=== PATIENT | female | born 1950 | race African-American/Black ===

== ENCOUNTER 2017-05-27 06:35 | Day surgery (SDC) | payer MEDICARE, MEDICAID ==
[2017-05-24 09:42] VITALS: BMI 31.2
[~2017-05-27 06:35] MED LIST: FLU VACC TS2017-18 (>65YR) 0.5 ML SYRINGE IM ONE
[2017-05-27 07:49] VITALS: TEMP 97
[2017-05-27 07:50] VITALS: BP 123/77
--- NOTE | 2017-05-27 10:27 | CT ---
EXAM: CERVICAL MYELOGRAM: HISTORY: Patient with neck pain, pacemaker. Unable to have MRI. RADIATION DOSIMETRY: DAP 466 mGy*\S\m2. The following is a compilation of findings on the patient's myelogram and post-myelographic CT. Informed consent was obtained. The right L1-2 interlaminar space was localized using fluoroscopy. The overlying skin was prepped and draped in the usual sterile manner. A 1% Lidocaine solution was used to anesthetize the overlying soft tissues. A 22-gauge spinal needle was placed into the subara chnoid space. A total of 10 mL of Isovue-M 300 was injected into the subarachnoid space. Using pos itioning, this was placed into the cervical spine. Post myelographic CT was obtained. Disk space height loss with multilevel disk space height loss and anterior and posterior osteophytes is seen at C3-4, C4-5, C5-6, C6-7. There is no significant evidence of central spinal stenosis. N o significant evidence of neural foraminal narrowing is seen. Multilevel midcervical changes of spondylosis. No significant central stenosis or neural foraminal narrowing is seen. No evidence of thecal sac or cord compression is seen. POS: [facility]
[2017-05-27] MEDS ORDERED: Iopamidol-M 300 61% 15 ML VIAL ONE (16:40)
== END 2017-05-27 10:20 | disposition home or self-care (01) ==
LOC: RAD 06:35
PROVIDERS: ATTEND Neurological Surgery
PROC: B01B1ZZ Fluoroscopy of Spinal Cord using Low Osmolar Contrast (ICD-10-PCS; principal; 2017-05-27)
DX: M54.12 Radiculopathy, cervical region (principal); M19.90 Unspecified osteoarthritis, unspecified site; I10 Essential (primary) hypertension; K21.9 Gastro-esophageal reflux disease without esophagitis; F60.1 Schizoid personality disorder; E03.9 Hypothyroidism, unspecified; J45.909 Unspecified asthma, uncomplicated; H40.9 Unspecified glaucoma; Z88.0 Allergy status to penicillin; Z88.8 Allergy status to other drugs, medicaments and biological substances; Z79.899 Other long term (current) drug therapy; Z95.0 Presence of cardiac pacemaker; Z87.891 Personal history of nicotine dependence
CPT/HCPCS: 62302; 72126

== ENCOUNTER 2017-05-27 14:33 | Observation (INO) | payer MEDICARE, MEDICAID ==
[2017-05-27 15:25] LABS: #Eosinphils 0.3 thou/uL (0.0-0.7); #Monocytes 0.5 thou/uL (0.11-0.59); #Neutrophils 2.5 thou/uL (1.40-6.50); %Basophils 0.6 % (0.0-1.0); %Eosinophils 5.5 % (0.0-10.0); %Lymphocytes 38.4 % (21.0-51.0); %Monocytes 8.8 % (0.0-10.0); Hematocrit 44.5 % (36.0-47.0); Mean Platelet Volume 7.2 fL (7.4-10.4); Red Blood Cell (RBC) Count 5.46 mill/uL (4.20-5.40); White Blood Cell (WBC) Count 5.2 thou/uL (4.8-10.8)
--- NOTE | 2017-05-27 15:44 | CT ---
HEAD CT WITHOUT CONTRAST: Date: 05/27/17 COMPARISON: 12/16/16. HISTORY: Recent onset of vision loss in the left eye, chronic right vision loss. TECHNIQUE: Serial axial CT imaging is obtained at 5 mm intervals from the vertex through the skull base without contrast. FINDINGS: There is extensive high density material throughout the subarachnoid space bilaterally from vertex through skull base. There is high density material throughout the ventricular system. This is consi stent with recent myelogram and injection of intrathecal contrast media. The presence of this pre-ex isting contrast media makes it impossible to exclude the possibility of underlying extra-axial hemor rhage. No midline shift or mass effect. Imaged paranasal sinuses and mastoid air cells are well aera joanna. No displaced calvarial fracture. IMPRESSION: Limited head CT secondary to recent administration of intrathecal contrast. No midline shift or mass effect. Follow-up imaging is advised as clinically indicated. POS: [facility]
[2017-05-27 15:48] LABS: ALT (SGPT) 16 U/L (8-55); AST (SGOT) 23 U/L (5-34); Alkaline Phosphatase 84 U/L (40-150); Anion Gap 13 mmol/L (10-20); BUN (Urea Nitrogen) 22 mg/dL (9.8-20.1); Bilirubin, Total 0.4 mg/dL (0.2-1.2); Calc. Creatinine Clearance 0 mL/min (70-130); Calcium 9.7 mg/dL (7.8-10.44); Carbon Dioxide 27 mmol/L (23-31); Chloride 103 mmol/L (98-107); Estimated GFR-MDRD 60; Globulin 4.5 g/dL (2.4-3.5); Protein, Total 8.5 g/dL (6.0-8.3)
[2017-05-27 15:52] LABS: Troponin I Less than 0.010 ng/mL (< 0.028)
[2017-05-27] MEDS ORDERED: PROVENTIL INHALER 6.7 G (200 INHALATIONS) INH PRN (16:58)
[2017-05-27] MEDS ORDERED: HYDROcodone/Acetaminophen 5/325 mg Tablet PO PRN (16:58)
[2017-05-27] MEDS ORDERED: Acetaminophen 325 MG TAB PO PRN (16:58)
[2017-05-27] MEDS ORDERED: Zolpidem Tartrate 5 MG TAB PO PRN (16:58)
[2017-05-27] MEDS ORDERED: Clopidogrel Bisulfate 300 MG TAB PO SCH (17:00)
[2017-05-27] MEDS ORDERED: methylPREDNISolone Sod Succ/PF 125 MG/2 ML VIAL ONE (17:04)
[2017-05-27] MEDS ORDERED: Water For Inject, Bacteriostat 30 ML ONE (17:04)
[2017-05-27] MEDS ORDERED: Labetalol HCl 100 MG/20 ML VIAL SLOW IVP PRN (17:07)
--- NOTE | 2017-05-27 18:44 | HP ---
PRIMARY CARE PROVIDER: Bella Jeffries. Referred to the [facility] Service for visual abnorm ality. HISTORY OF PRESENT ILLNESS: The patient had 2 procedures done today, a cervical spine myelogram and a cervical spine CT. Upon arriving home, she had an episode of blurred vision, then red vision and now elevation. She called the coat tailor after it went red. She is blind in the right eye, only has vis ion in the left eye. Has no double vision. Has chronic blurry vision. Studies were done because o f the pain in the left side of her head, down into her neck that has been present for 4 months, francoise garcia. PAST MEDICAL HISTORY: Chronic medical problems, hypothyroidism, asthma, rheumatoid arthritis, hyper tension and elevated cholesterol. CURRENT MEDICATIONS: Levothyroxine 75 mcg a day, metoprolol 100 mg a day, losartan 100 mg a day, ga bapentin 300 mg 3 times a day and atorvastatin 20 mg a day. ALLERGIES: ASPIRIN, PENICILLIN and TRAMADOL. PAST SURGICAL HISTORY: Right ankle surgery, bilateral right arm surgery to her forearm, hysterectom y and two hernias. FAMILY HISTORY: Father of heart disease. Mother of colon cancer. SOCIAL HISTORY: The patient is . Does not smoke or drink alcohol. Does not use illegal zach gs. CODE STATUS: Full. Did not name surrogate decision maker on this visit. REVIEW OF SYSTEMS: General: She has had some dizziness with the present illness, but she did not r eally feel like she is going to faint. No whirling around. No fever, sweats or chills. Eyes: No blurry, no flashing lights or other disturbance other than that described in the present illness. E NT: No ear pain or drainage. No nasal bleeding. No trouble swallowing. Cardiac: No chest pain, orthopnea or paroxysmal nocturnal dyspnea. Respiratory: No cough, wheezing or asthma. Gastrointes tinal: Nausea with the present illness. No vomiting, no abdominal pain, no diarrhea or constipatio n. Genitourinary: No hematuria or dysuria. Musculoskeletal: No pain or swelling in the joints, m uscles of her legs or arms. Neurologic: No history of strokes, seizures or focal weakness. Psychi atric: No anxiety or depression. Skin: No bruising, bleeding or rash. Heme/Lymph: No tender or swollen lymph nodes in axilla, inguinal or cervical area. PHYSICAL EXAMINATION: VITAL SIGNS: Blood pressure ranged to 167/102, pulse 82, respirations 18 and temperature 97.9. GENERAL: She is alert, oriented, cooperative, pleasant lady. HEENT: Eyes: Right pupil is large irregular cloudy nonreactive. Left round, reactive. Extraocula r movements grossly intact. Sclerae white. Tympanic membranes are clear. Nose is clear. Oral muc ous membranes are wet. Dental hygiene is good. CHEST: Clear to auscultation and percussion. NECK: No jugular venous distention, adenopathy, or thyromegaly. HEART: Regular rate and rhythm. First and second heart sounds are clear. There are no murmurs or gallops. ABDOMEN: Soft, bowel sounds are normal. There is no hepatosplenomegaly, no mass, no rebound. EXTREMITIES: Reveal no cyanosis, clubbing or edema. PULSES: Carotid, radial, femoral and dorsalis pedis pulses intact. SKIN: Warm and dry without bruises or rash. HEME/LYMPH: No tender or swollen lymph nodes in axilla, inguinal or cervical area. Deep tendon ref lexes are symmetric. Toes are downgoing. Moves all extremities. NEUROLOGICAL: Cranial nerves II-XII were intact except for the pupillary responses of the right whe n tested for colored vision. When I pointed blue, she said it looked bacon; when I pointed green, sh e said it looked bacon; when I pointed green, she said it was yellow and when I pointed red, she said orange. IMAGING DATA: CT scan of her brain reviewed by me reveals contrast to making any interpretation dif ficult. LABORATORY DATA: White count 5.2, hemoglobin 14.6 and platelet count 231,000. Comp metabolic profi le normal except for a BUN of 22. ADMITTING DIAGNOSES: 1. Visual change post-intrathecal contrast studies. 2. Blind in right eye, chronic. 3. Hypertension. 4. Dyslipidemia. 5. Asthma. PLAN: We will get sed rate. We will give a dose of Solu-Medrol IV. We will place her in the hospi cipriano and do neuro checks. The patient is allergic to ASPIRIN. I have ordered 300 mg of Plavix. We will do carotid ultrasounds, reevaluate as needed.
[2017-05-27 18:52] VITALS: BMI 28.2
[2017-05-27] MEDS: Ondansetron HCl/PF 4 MG/2 ML Vial IVP PRN (19:29)
--- NOTE | 2017-05-27 19:34 | ULT ---
BILATERAL CAROTID DUPLEX ULTRASOUND WITH SPECTRAL ANALYSIS AND COLOR FLOW EVALUATION: Date: 05-27-17 History: Visual disturbance. FINDINGS: Grayscale, color flow, doppler evaluation, spectral analysis of the bilateral carotid arteries is pe rformed with 2D imaging. There is stable mild intimal thickening within the bilateral common carotid arteries similar to the prior exam. There is less than 50% maximal stenosis in the bilateral internal carotid arteries according to the peak systolic velocities and the ICA/CCA ratios. Peak systolic velocity in the right ICA is 59.5 cm/ sec with an ICA/CCA ratio of 0.74. Peak systolic velocity in the left ICA is 58.2 cm/sec with an ICA /CCA ratio of 0.96. Antegrade flow is demonstrated in the vertebral arteries bilaterally. Peak systolic velocity measurements have not significantly changed compared to a prior study on 05-18. IMPRESSION: No hemodynamically significant stenosis in the bilateral internal carotid arteries. POS: [facility]
[2017-05-27] MEDS: Metoprolol Tartrate 100 MG TAB PO SCH (20:54)
[2017-05-28] MEDS: Levothyroxine Sodium 75 MCG TAB PO SCH (04:38)
[2017-05-28 05:04] LABS: #Lymphocytes 0.8 thou/uL (1.20-3.40); #Monocytes 0.1 thou/uL (0.11-0.59); #Neutrophils 4.3 thou/uL (1.40-6.50); %Basophils 0.4 % (0.0-1.0); %Eosinophils 0.1 % (0.0-10.0); %Monocytes 1.9 % (0.0-10.0); Hematocrit 43.6 % (36.0-47.0); Mean Platelet Volume 7.4 fL (7.4-10.4); Red Blood Cell (RBC) Count 5.37 mill/uL (4.20-5.40); White Blood Cell (WBC) Count 5.3 thou/uL (4.8-10.8)
[2017-05-28 05:33] LABS: Anion Gap 12 mmol/L (10-20); BUN (Urea Nitrogen) 18 mg/dL (9.8-20.1); Calc. Creatinine Clearance 63 mL/min (70-130); Calcium 9.2 mg/dL (7.8-10.44); Carbon Dioxide 23 mmol/L (23-31); Chloride 106 mmol/L (98-107); Cholesterol 218 mg/dl (< 200 Desired); Estimated GFR-MDRD 68; LDL Cholesterol, Calculated 153 mg/dL
[2017-05-28] MEDS ORDERED: FLU VACC TS2017-18 (>65YR) 0.5 ML SYRINGE IM ONE (09:00)
--- NOTE | 2017-05-28 09:48 | DIS ---
TRANSFER OF CARE NOTE PRIMARY CARE PROVIDER: Bella Jeffries NP DISCHARGE DISPOSITION: Home. DATE OF ADMISSION: 05/27/2017 DATE OF DISCHARGE: 05/28/2017 FINAL DIAGNOSES: 1. Visual color change, resolved. 2. Hypertension. 3. Hypothyroidism. 4. Asthma. DISCHARGE MEDICATIONS: Ventolin HFA p.r.n., metoprolol 100 mg a day, losartan 100 mg a day, Lipitor 20 mg a day, levothyroxine 75 mcg a daily, Lyrica 75 mg p.o. b.i.d., Medrol Dosepak started today. ALLERGIES: ASPIRIN, PENICILLIN, and TRAMADOL. CODE STATUS: Full. PENDING AT THE TIME OF DISCHARGE: Nothing. HOSPITAL COURSE: The patient had a myelogram yesterday. She developed strange visual sensations, f irst bluish vision, then yellowish vision and reddish vision. CT scan was compromised by contrast i n her head. Today she is fine. Her vision is normal. Laboratory done revealed essentially normal comp metabolic profile, sed rate was only 50, which is within normal range for age, CBC was unremark able. She was initially given IV steroids. Today vital signs are stable. Neurological exam is sta ble. She is being discharged. She is on her home medicines. I have included a Medrol Dosepak empi rically. She has been asked to see Bella Jeffries in 7 days for followup. Carotid ultrasounds done were reinaldo zhang
[2017-05-28] MEDS: Atorvastatin Calcium 20 MG TAB PO SCH (09:56)
[2017-05-28] MEDS: Metoprolol Tartrate 100 MG TAB PO SCH ×2 (09:56→20:38)
[2017-05-28] MEDS: Losartan Potassium 25 MG TAB PO SCH (09:57)
[2017-05-28] MEDS: Ondansetron HCl/PF 4 MG/2 ML Vial IVP PRN ×2 (10:49→18:35)
--- NOTE | 2017-05-28 14:48 | PDOC.PN ---
- Subjective Encounter Start Date: 05/28/17 Encounter Start Time: 14:46 Subjective: was ready for DC this am, visual syptoms resolved. now states she has had -: N/V since procedure yesterday. PT states she needs further PT - Objective Resuscitation Status: Resuscitation Status FULL:Full Resuscitation MAR Reviewed: Yes Vital Signs & Weight: Vital Signs (12 hours) Temp Pulse Pulse Pulse Pulse Resp BP 05/28/17 12:00 97.8 F 61 16 05/28/17 09:13 62 88 83 142/70 H 05/28/17 08:40 98.5 F 63 16 05/28/17 08:02 74 66 147/82 H 05/28/17 08:00 98.5 F 63 16 05/28/17 04:10 97.8 F 67 18 BP BP BP Pulse Ox 05/28/17 12:00 162/85 H 98 05/28/17 09:13 138/69 138/88 05/28/17 08:40 05/28/17 08:02 181/89 H 05/28/17 08:00 182/103 H 95 05/28/17 04:10 146/80 H 95 Weight Weight 159 lb 8 oz I&O: 05/27/17 05/28/17 05/29/17 06:59 06:59 06:59 Intake Total 820 Balance 820 Result Diagrams: 05/28/17 04:45 05/28/17 04:45 Phys Exam - Physical Examination Constitutional: NAD Neck: no JVD Respiratory: clear to auscultation bilateral Cardiovascular: RRR, no significant murmur Gastrointestinal: soft, non-tender, positive bowel sounds Musculoskeletal: no edema Neurological: non-focal is unstaable walking per Pt Dx/Plan (1) Nausea & vomiting Code(s): R11.2 - NAUSEA WITH VOMITING, UNSPECIFIED Status: Acute Qualifiers: Vomiting Intractability: unspecified (2) Visual color changes Code(s): H53.50 - UNSPECIFIED COLOR VISION DEFICIENCIES Status: Resolved (3) Asthma with bronchitis Code(s): J45.909 - UNSPECIFIED ASTHMA, UNCOMPLICATED Status: Chronic Qualifiers: Asthma complication type: uncomplicated (4) Hypertension Code(s): I10 - ESSENTIAL (PRIMARY) HYPERTENSION Status: Chronic - Plan CONt PT. rehab consult -: iv fluids, zofran prn * .
[2017-05-28] MEDS: Dextrose 5 %-0.45 % NaCl 1,000 ML IV SCH (15:24)
[2017-05-29] MEDS: Dextrose 5 %-0.45 % NaCl 1,000 ML IV SCH (02:50)
[2017-05-29] MEDS: Levothyroxine Sodium 75 MCG TAB PO SCH (05:57)
[2017-05-29] MEDS: Metoprolol Tartrate 100 MG TAB PO SCH ×2 (08:22→20:34)
[2017-05-29] MEDS: Losartan Potassium 25 MG TAB PO SCH (08:22)
[2017-05-29] MEDS: Atorvastatin Calcium 20 MG TAB PO SCH (08:22)
--- NOTE | 2017-05-29 16:06 | PDOC.PN ---
- Subjective Encounter Start Date: 05/29/17 Encounter Start Time: 16:04 Subjective: mo N/V. vesial abn rdsolved - Objective Resuscitation Status: Resuscitation Status FULL:Full Resuscitation MAR Reviewed: Yes Vital Signs & Weight: Vital Signs (12 hours) Temp Pulse Pulse Pulse Resp BP BP 05/29/17 11:30 98.3 F 78 16 05/29/17 08:36 74 62 115/62 113/69 05/29/17 08:00 97.8 F 66 18 05/29/17 07:20 97.8 F 66 18 BP Pulse Ox 05/29/17 11:30 129/76 95 05/29/17 08:36 05/29/17 08:00 05/29/17 07:20 129/78 95 Weight Weight 164 lb 4.8 oz I&O: 05/28/17 05/29/17 05/30/17 06:59 06:59 06:59 Intake Total 820 2800 600 Balance 820 2800 600 Result Diagrams: 05/28/17 04:45 05/28/17 04:45 Phys Exam - Physical Examination Constitutional: NAD Neck: no nodes Respiratory: clear to auscultation bilateral Cardiovascular: RRR, no significant murmur Gastrointestinal: soft, positive bowel sounds Musculoskeletal: edema present Dx/Plan (1) Nausea & vomiting Code(s): R11.2 - NAUSEA WITH VOMITING, UNSPECIFIED Status: Acute Qualifiers: Vomiting Intractability: unspecified (2) Visual color changes Code(s): H53.50 - UNSPECIFIED COLOR VISION DEFICIENCIES Status: Resolved (3) Asthma with bronchitis Code(s): J45.909 - UNSPECIFIED ASTHMA, UNCOMPLICATED Status: Chronic Qualifiers: Asthma complication type: uncomplicated (4) Hypertension Code(s): I10 - ESSENTIAL (PRIMARY) HYPERTENSION Status: Chronic - Plan stable, cont PT/OT, home meds * .
[2017-05-29] MEDS ORDERED: Atorvastatin Calcium 10 MG TAB PO SCH (21:00)
[2017-05-30] MEDS: Levothyroxine Sodium 75 MCG TAB PO SCH (05:34)
[2017-05-30] MEDS ORDERED: Clopidogrel Bisulfate 75 MG TAB PO SCH (09:00)
[2017-05-30] MEDS: Losartan Potassium 25 MG TAB PO SCH (09:09)
[2017-05-30] MEDS: Metoprolol Tartrate 100 MG TAB PO SCH (09:10)
[2017-05-30 11:06] VITALS: BP 136/67; TEMP 98.6
--- NOTE | 2017-05-30 12:21 | DIS ---
TRANSFER OF CARE NOTE DATE OF ADMISSION: 05/27/2017 DATE OF DISCHARGE: 05/30/2017 DISCHARGE DISPOSITION: Discharged to inpatient rehabilitation. PRIMARY CARE PROVIDER: Bella Jeffries FINAL DIAGNOSES: 1. Unspecified color vision deficiencies post-cervical myelogram. 2. Ataxia. 3. Hypertension. 4. Hypothyroidism. 5. Nausea, and vomiting, resolved. 6. History of asthma. DISCHARGE MEDICATIONS: Plavix 75 mg a day, metoprolol 100 mg a day, losartan 100 mg a day, Lipitor 20 mg a day, levothyroxine 75 mcg a day, gabapentin 300 mg 3 times a day, Lyrica 75 mg twice a day, Plavix 75 mg a day, Ventolin 2 puffs q.4 h. p.r.n. ALLERGIES: Allergic to ASPIRIN, PENICILLINS and TRAMADOL. PENDING AT TIME OF DISCHARGE: Nothing. CODE STATUS: FULL. HOSPITAL COURSE: The patient had a cervical myelogram the day before presenting in the emergency ro om with color vision disturbance. She first described her vision as being blue, then yellow, then r ed. Subsequently resolved. Her neurological exam was grossly symmetric. CT scan done in the emerg ency room was compromised with contrast. Her symptoms had resolved within hours of admission. 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 Her laboratory; CBC was normal. Com p metabolic profile was essentially normal. Cholesterol was 218, LDL 153, HDL 54. The patient was not on aspirin due to aspirin allergy, she was started on Plavix. She was seen by physical therapy. While she did not have any specific neurological findings they found her to be unsteady. She does use a cane at home and had requested a walker when she goes home. Physical Therapy recommended agapito t she be considered for inpatient rehab for deconditioning and strengthening. This has finally been approved and she is being transferred over there to [facility] for continued physical t herapy and occupational therapy CONSULTATIONS: No consultations were obtained. PROCEDURES: No procedures were done. FOLLOWUP: She will follow up with Bella Jeffries once discharged from the rehab unit.
== END 2017-05-30 14:06 ==
LOC: ERS 14:33 → 2SE 16:40
PROVIDERS: ADMIT Internal Medicine; ATTEND Internal Medicine
DX: H53.50 Unspecified color vision deficiencies (principal); R27.0 Ataxia, unspecified; I10 Essential (primary) hypertension; E03.9 Hypothyroidism, unspecified; R11.2 Nausea with vomiting, unspecified; J45.909 Unspecified asthma, uncomplicated; E78.00 Pure hypercholesterolemia, unspecified; M06.9 Rheumatoid arthritis, unspecified; Z88.0 Allergy status to penicillin; Z88.5 Allergy status to narcotic agent; Z79.899 Other long term (current) drug therapy; Z88.8 Allergy status to other drugs, medicaments and biological substances; Z98.890 Other specified postprocedural states; Z82.49 Family history of ischemic heart disease and other diseases of the circulatory system; Z80.0 Family history of malignant neoplasm of digestive organs; Z87.891 Personal history of nicotine dependence
CPT/HCPCS: 62302; 70450; 72126; 80048; 80053; 80061; 82553; 84484; 85025 ×2; 85652; 90732; 93005; 93880; 96361 ×2; 96374; 96375; 96376; 97110 ×3; 97116 ×3; 97139 ×2; 97530; 99285; G0008; G0009; G0378 ×2; G8978; G8979; G8987; G8988; Q2036; 36415; 90471; 90682; G8996-GN-CH; G8997-GN-CH; J2405; J2930

== ENCOUNTER 2017-10-24 22:12 | Emergency (ER) | payer MEDICARE, MEDICAID | END 2017-10-24 22:55 | disposition left against medical advice (07) | LOC: ERS 22:12 | DX: Z53.21 Procedure and treatment not carried out due to patient leaving prior to being seen by health care provider (principal) ==

== ENCOUNTER 2018-02-27 13:09 | Outpatient (CLI) | payer MEDICARE, MEDICAID | END 2018-02-27 13:10 | disposition home or self-care (01) | LOC: BICMAMMO 13:09 | PROVIDERS: ATTEND Family Medicine | DX: Z12.31 Encounter for screening mammogram for malignant neoplasm of breast (principal); Z13.820 Encounter for screening for osteoporosis; M85.89 Other specified disorders of bone density and structure, multiple sites; Z80.3 Family history of malignant neoplasm of breast | CPT/HCPCS: 77063; 77067; 77080 ==

== ENCOUNTER 2019-01-27 11:11 | Emergency (ER) | payer MEDICARE ==
--- NOTE | 2019-01-31 15:08 | EKG ---
Test Reason : Blood Pressure : / mmHG Vent. Rate : 065 BPM Atrial Rate : 065 BPM P-R Int : 288 ms QRS Dur : 086 ms QT Int : 434 ms P-R-T Axes : 037 009 -73 degrees QTc Int : 451 ms Atrial-paced rhythm with prolonged AV conduction with Premature atrial complexes T wave abnormality, consider lateral ischemia Abnormal ECG Confirmed by JE ALBERT ([id number]), supervising film or videotape editor TANNER MELÉNDEZ ([id number]) on 01/31/2019 3:07:43 PM Referred By: Confirmed By:JE ALBERT
== END 2019-01-27 12:35 | disposition home or self-care (01) ==
LOC: ERS 11:11
DX: T65.91XA Toxic effect of unspecified substance, accidental (unintentional), initial encounter (principal); J45.909 Unspecified asthma, uncomplicated; E03.9 Hypothyroidism, unspecified; I10 Essential (primary) hypertension; F31.9 Bipolar disorder, unspecified; Z87.891 Personal history of nicotine dependence; Z79.51 Long term (current) use of inhaled steroids; Z79.899 Other long term (current) drug therapy
CPT/HCPCS: 93005

== ENCOUNTER 2020-01-21 21:37 | Emergency (ER) | payer MEDICARE, MEDICAID ==
[2020-01-21] MEDS ORDERED: Ketorolac Tromethamine 30 MG/ML VIAL ONE (22:03)
--- NOTE | 2020-01-22 07:34 | CT ---
CT LUMBAR SPINE WITHOUT CONTRAST: Date: 01/21/2020 HISTORY: Trauma, fall. COMPARISON: CT from 2014. FINDINGS: The aortic contour is nonaneurysmal. Mild diverticular disease sigmoid colon. No hydronephrosis. No acute fracture or malalignment of the lumbar spine. Moderate left and mild right SI joint degenera tive changes. The transverse processes are intact. Small disc bulges L3-4, L4-5, and L5-S1 cause mild bilateral sourav ral foraminal narrowing. No significant spinal canal narrowing is appreciated, although evaluation is limited with CT. IMPRESSION: Relatively normal examination for age. No acute fracture. POS: HOME
--- NOTE | 2020-01-22 07:38 | CT ---
CT PELVIS WITHOUT CONTRAST: Date: 01/21/2020 HISTORY: Fall, pain. COMPARISON: None. FINDINGS: Intrapelvic soft tissues are unremarkable. Moderate degenerative change of the left and mild degenera tive change of the right SI joint. Sacrum intact. Ilium intact. Obturator rings intact. Femoral heads and necks intact. Coccyx intact. Mild enthesopathic change of both hamstring tendons. Superficial soft tissues are unremarkable. IMPRESSION: No acute pelvic fracture. POS: HOME
== END 2020-01-21 22:45 | disposition home or self-care (01) ==
LOC: ERS 21:37
DX: M54.42 Lumbago with sciatica, left side (principal); I10 Essential (primary) hypertension; J45.909 Unspecified asthma, uncomplicated; E03.9 Hypothyroidism, unspecified; F31.9 Bipolar disorder, unspecified; M06.9 Rheumatoid arthritis, unspecified; Z87.891 Personal history of nicotine dependence; Z79.899 Other long term (current) drug therapy; Z79.51 Long term (current) use of inhaled steroids
CPT/HCPCS: 72131; 72192; 96374; J1885

== ENCOUNTER 2021-02-03 11:18 | Inpatient (IN) | payer MEDICARE, OTHER ==
[~2021-02-03 11:18] MED LIST changes: -FLU VACC TS2017-18 (>65YR) 0.5 ML SYRINGE IM ONE; +Iopamidol-370 76% 500 ML 1 ML ONE
[2021-02-03] MEDS ORDERED: Clopidogrel Bisulfate 75 MG TAB ONE (11:49)
[2021-02-03 11:52] LABS: #Eosinphils 0.2 thou/uL (0.0-0.7); #Lymphocytes 1.6 thou/uL (1.20-3.40); #Monocytes 0.4 thou/uL (0.11-0.59); #Neutrophils 2.2 thou/uL (1.40-6.50); %Basophils 0.4 % (0.0-1.0); %Eosinophils 3.6 % (0.0-10.0); %Lymphocytes 35.7 % (21.0-51.0); %Monocytes 9.8 % (0.0-10.0); %Neutrophils 50.5 % (42.0-75.0); Hemoglobin 12.8 g/dL (12.0-16.0); Mean Corpuscular HGB CONC 30.4 g/dL (32.0-36.0); Mean Corpuscular Hemoglobin 24.4 pg (27.0-31.0); Mean Corpuscular Volume 80.3 fL (78.0-98.0); Mean Platelet Volume 8.4 fL (7.4-10.4); Platelet Count 210 thou/uL (130-400); RBC Distribution Width 15.2 % (11.5-14.5); Red Blood Cell (RBC) Count 5.23 mill/uL (4.20-5.40); White Blood Cell (WBC) Count 4.4 thou/uL (4.8-10.8)
[2021-02-03 12:04] LABS: INR-International Normal Ratio 0.9; PTT 26.4 sec (22.9-36.1); Prothrombin Time 12.5 sec (12.0-14.7)
[2021-02-03 12:15] LABS: ALT (SGPT) 25 U/L (8-55); AST (SGOT) 25 U/L (5-34); Albumin 3.8 g/dL (3.4-4.8); Alkaline Phosphatase 81 U/L (40-110); Anion Gap 14 mmol/L (10-20); BUN (Urea Nitrogen) 20 mg/dL (9.8-20.1); Bilirubin, Total 0.3 mg/dL (0.2-1.2); Calc. Creatinine Clearance 0 mL/min (70-130); Calcium 9.2 mg/dL (7.8-10.44); Carbon Dioxide 25 mmol/L (23-31); Chloride 107 mmol/L (98-107); Globulin 3.7 g/dL (2.4-3.5); Glucose 90 mg/dL (83-110); Lipase 25 U/L (8-78); Magnesium 2.2 mg/dL (1.6-2.6); Potassium 4.2 mmol/L (3.5-5.1); Protein, Total 7.5 g/dL (5.8-8.1); Sodium 142 mmol/L (136-145)
[2021-02-03] MEDS ORDERED: Albuterol Sulfate 2.5 mg/3 ml Neb NEB PRN (13:27)
[2021-02-03 15:04] VITALS: BMI 31.3
[2021-02-03] MEDS: Atorvastatin Calcium 40 MG TAB PO SCH (20:40)
[2021-02-03] MEDS ORDERED: hydrALAZINE 20 MG/ML VIAL SLOW IVP PRN (20:55)
[2021-02-03] MEDS ORDERED: Labetalol HCl 100 MG/20 ML VIAL SLOW IVP PRN (20:55)
[2021-02-04] MEDS: Melatonin 3 MG TAB PO PRN ×2 (00:05→21:19)
[2021-02-04 05:43] LABS: #Eosinphils 0.2 thou/uL (0.0-0.7); #Lymphocytes 1.6 thou/uL (1.20-3.40); #Monocytes 0.3 thou/uL (0.11-0.59); #Neutrophils 1.6 thou/uL (1.40-6.50); %Eosinophils 4.6 % (0.0-10.0); %Lymphocytes 42.4 % (21.0-51.0); %Monocytes 8.5 % (0.0-10.0); %Neutrophils 44.5 % (42.0-75.0); Hemoglobin 12.1 g/dL (12.0-16.0); Mean Corpuscular HGB CONC 31.6 g/dL (32.0-36.0); Mean Corpuscular Hemoglobin 25.4 pg (27.0-31.0); Mean Corpuscular Volume 80.4 fL (78.0-98.0); Mean Platelet Volume 8.4 fL (7.4-10.4); Platelet Count 205 thou/uL (130-400); RBC Distribution Width 15.2 % (11.5-14.5); Red Blood Cell (RBC) Count 4.76 mill/uL (4.20-5.40); White Blood Cell (WBC) Count 3.7 thou/uL (4.8-10.8)
[2021-02-04 05:46] LABS: Hemoglobin A1c 5.9 % (4.0-6.0)
[2021-02-04] MEDS: Levothyroxine Sodium 100 MCG TAB PO SCH (05:59)
[2021-02-04 06:05] LABS: ALT (SGPT) 20 U/L (8-55); AST (SGOT) 22 U/L (5-34); Albumin 3.4 g/dL (3.4-4.8); Alkaline Phosphatase 72 U/L (40-110); Anion Gap 10 mmol/L (10-20); BUN (Urea Nitrogen) 14 mg/dL (9.8-20.1); Bilirubin, Total 0.3 mg/dL (0.2-1.2); Calc. Creatinine Clearance 73 mL/min (70-130); Calcium 8.7 mg/dL (7.8-10.44); Carbon Dioxide 28 mmol/L (23-31); Cardiac Risk 3.1 (Less than 4.5); Chloride 106 mmol/L (98-107); Cholesterol 161 mg/dl (< 200 Desired); Globulin 3.3 g/dL (2.4-3.5); Glucose 96 mg/dL (83-110); HDL Cholesterol 52 mg/dL (>60 Neg Risk); LDL Cholesterol, Calculated 98 mg/dL; Potassium 3.8 mmol/L (3.5-5.1); Protein, Total 6.7 g/dL (5.8-8.1); Sodium 140 mmol/L (136-145); Triglycerides 54 mg/dL (Less than 150)
[2021-02-04] MEDS: Clopidogrel Bisulfate 75 MG TAB PO SCH (09:05)
[2021-02-04] MEDS: Enoxaparin Sodium 30 MG/0.3 ML SYRINGE SC SCH (09:05)
[2021-02-04] MEDS: Atorvastatin Calcium 40 MG TAB PO SCH (21:19)
[2021-02-05] MEDS: hydrOXYzine 25 MG TAB PO PRN ×2 (01:32→20:47)
[2021-02-05 05:27] LABS: #Basophils 0.1 thou/uL (0.0-0.2); #Eosinphils 0.2 thou/uL (0.0-0.7); #Lymphocytes 1.4 thou/uL (1.20-3.40); #Monocytes 0.3 thou/uL (0.11-0.59); #Neutrophils 1.9 thou/uL (1.40-6.50); %Basophils 1.4 % (0.0-1.0); %Eosinophils 5.5 % (0.0-10.0); %Lymphocytes 36.7 % (21.0-51.0); %Monocytes 8.8 % (0.0-10.0); %Neutrophils 47.6 % (42.0-75.0); Hemoglobin 13.3 g/dL (12.0-16.0); Mean Corpuscular HGB CONC 33.6 g/dL (32.0-36.0); Mean Corpuscular Hemoglobin 26.9 pg (27.0-31.0); Mean Platelet Volume 8.1 fL (7.4-10.4); Platelet Count 216 thou/uL (130-400); RBC Distribution Width 14.9 % (11.5-14.5); Red Blood Cell (RBC) Count 4.93 mill/uL (4.20-5.40); White Blood Cell (WBC) Count 3.9 thou/uL (4.8-10.8)
[2021-02-05 05:50] LABS: ALT (SGPT) 28 U/L (8-55); AST (SGOT) 36 U/L (5-34); Albumin 3.6 g/dL (3.4-4.8); Alkaline Phosphatase 83 U/L (40-110); Anion Gap 12 mmol/L (10-20); BUN (Urea Nitrogen) 8 mg/dL (9.8-20.1); Bilirubin, Total 0.3 mg/dL (0.2-1.2); Calc. Creatinine Clearance 73 mL/min (70-130); Calcium 8.9 mg/dL (7.8-10.44); Carbon Dioxide 23 mmol/L (23-31); Chloride 107 mmol/L (98-107); Globulin 3.7 g/dL (2.4-3.5); Glucose 96 mg/dL (83-110); Potassium 4.1 mmol/L (3.5-5.1); Protein, Total 7.3 g/dL (5.8-8.1); Sodium 138 mmol/L (136-145)
[2021-02-05] MEDS: Levothyroxine Sodium 100 MCG TAB PO SCH (06:20)
[2021-02-05] MEDS: Enoxaparin Sodium 30 MG/0.3 ML SYRINGE SC SCH (08:51)
[2021-02-05] MEDS: Clopidogrel Bisulfate 75 MG TAB PO SCH (08:53)
[2021-02-05] MEDS: Metoprolol Tartrate 100 MG TAB PO SCH ×2 (08:53→20:47)
[2021-02-05] MEDS: Hydrochlorothiazide 25 MG TAB PO SCH (08:53)
[2021-02-05] MEDS: Losartan 25 MG TAB PO SCH (08:58)
[2021-02-05] MEDS ORDERED: Non-Formulary Item 1 EACH (Losartan Potassium [Cozaar] 100 MG Tablet) PO SCH (09:00)
[2021-02-05] MEDS: Atorvastatin Calcium 40 MG TAB PO SCH (20:46)
[2021-02-06 05:32] LABS: #Eosinphils 0.1 thou/uL (0.0-0.7); #Lymphocytes 1.7 thou/uL (1.20-3.40); #Monocytes 0.4 thou/uL (0.11-0.59); %Basophils 0.3 % (0.0-1.0); %Eosinophils 3.4 % (0.0-10.0); %Lymphocytes 40.7 % (21.0-51.0); %Monocytes 9.5 % (0.0-10.0); %Neutrophils 46.1 % (42.0-75.0); Hemoglobin 13.4 g/dL (12.0-16.0); Mean Corpuscular HGB CONC 32.3 g/dL (32.0-36.0); Mean Corpuscular Volume 80.7 fL (78.0-98.0); Mean Platelet Volume 7.9 fL (7.4-10.4); Platelet Count 235 thou/uL (130-400); Red Blood Cell (RBC) Count 5.16 mill/uL (4.20-5.40); White Blood Cell (WBC) Count 4.2 thou/uL (4.8-10.8)
[2021-02-06] MEDS: Levothyroxine Sodium 100 MCG TAB PO SCH (05:37)
[2021-02-06 05:51] LABS: ALT (SGPT) 35 U/L (8-55); AST (SGOT) 49 U/L (5-34); Albumin 3.6 g/dL (3.4-4.8); Alkaline Phosphatase 98 U/L (40-110); Anion Gap 11 mmol/L (10-20); BUN (Urea Nitrogen) 20 mg/dL (9.8-20.1); Bilirubin, Total 0.3 mg/dL (0.2-1.2); Calc. Creatinine Clearance 60 mL/min (70-130); Calcium 9.2 mg/dL (7.8-10.44); Carbon Dioxide 23 mmol/L (23-31); Chloride 108 mmol/L (98-107); Globulin 3.8 g/dL (2.4-3.5); Glucose 97 mg/dL (83-110); Potassium 4.2 mmol/L (3.5-5.1); Protein, Total 7.4 g/dL (5.8-8.1); Sodium 138 mmol/L (136-145)
[2021-02-06] MEDS: Enoxaparin Sodium 30 MG/0.3 ML SYRINGE SC SCH (08:29)
[2021-02-06] MEDS: Losartan 25 MG TAB PO SCH (08:30)
[2021-02-06] MEDS: Hydrochlorothiazide 25 MG TAB PO SCH (08:30)
[2021-02-06] MEDS: Clopidogrel Bisulfate 75 MG TAB PO SCH (08:31)
[2021-02-06] MEDS: Metoprolol Tartrate 100 MG TAB PO SCH ×2 (08:31→20:29)
[2021-02-06] MEDS: Atorvastatin Calcium 40 MG TAB PO SCH (20:28)
[2021-02-06] MEDS: Melatonin 3 MG TAB PO PRN (20:29)
[2021-02-07] MEDS: Levothyroxine Sodium 100 MCG TAB PO SCH (05:07)
[2021-02-07] MEDS: Clopidogrel Bisulfate 75 MG TAB PO SCH (09:16)
[2021-02-07] MEDS: Enoxaparin Sodium 30 MG/0.3 ML SYRINGE SC SCH (09:16)
[2021-02-07] MEDS: Metoprolol Tartrate 100 MG TAB PO SCH ×2 (09:16→21:35)
[2021-02-07] MEDS: Hydrochlorothiazide 25 MG TAB PO SCH (09:16)
[2021-02-07] MEDS: Losartan 25 MG TAB PO SCH (09:16)
[2021-02-07] MEDS: Atorvastatin Calcium 40 MG TAB PO SCH (21:35)
[2021-02-07] MEDS: Melatonin 3 MG TAB PO PRN (21:35)
[2021-02-08] MEDS: Levothyroxine Sodium 100 MCG TAB PO SCH (05:17)
[2021-02-08] MEDS: Hydrochlorothiazide 25 MG TAB PO SCH (09:33)
[2021-02-08] MEDS: Metoprolol Tartrate 100 MG TAB PO SCH ×2 (09:33→22:25)
[2021-02-08] MEDS: Enoxaparin Sodium 30 MG/0.3 ML SYRINGE SC SCH (09:33)
[2021-02-08] MEDS: Clopidogrel Bisulfate 75 MG TAB PO SCH (09:33)
[2021-02-08] MEDS: Losartan 25 MG TAB PO SCH ×2 (13:00→22:25)
[2021-02-08] MEDS: Atorvastatin Calcium 40 MG TAB PO SCH (21:56)
[2021-02-08] MEDS: Melatonin 3 MG TAB PO PRN (21:56)
[2021-02-09] MEDS: Metoprolol Tartrate 100 MG TAB PO SCH ×2 (09:03→20:03)
[2021-02-09] MEDS: Clopidogrel Bisulfate 75 MG TAB PO SCH (09:03)
[2021-02-09] MEDS: Levothyroxine Sodium 100 MCG TAB PO SCH (09:03)
[2021-02-09] MEDS: Hydrochlorothiazide 25 MG TAB PO SCH (09:03)
[2021-02-09] MEDS: Enoxaparin Sodium 30 MG/0.3 ML SYRINGE SC SCH (09:03)
[2021-02-09] MEDS: Atorvastatin Calcium 40 MG TAB PO SCH (20:02)
[2021-02-09] MEDS: Losartan 25 MG TAB PO SCH (20:03)
[2021-02-09] MEDS: Melatonin 3 MG TAB PO PRN (20:06)
[2021-02-10] MEDS: Levothyroxine Sodium 100 MCG TAB PO SCH (06:23)
[2021-02-10] MEDS: Clopidogrel Bisulfate 75 MG TAB PO SCH (09:38)
[2021-02-10] MEDS: Hydrochlorothiazide 25 MG TAB PO SCH (09:38)
[2021-02-10] MEDS: Metoprolol Tartrate 100 MG TAB PO SCH ×2 (09:38→20:35)
[2021-02-10] MEDS: Enoxaparin Sodium 30 MG/0.3 ML SYRINGE SC SCH (09:38)
[2021-02-10] MEDS: Losartan 25 MG TAB PO SCH (20:35)
[2021-02-10] MEDS: Atorvastatin Calcium 40 MG TAB PO SCH (20:35)
[2021-02-10] MEDS: Melatonin 3 MG TAB PO PRN (20:37)
[2021-02-11] MEDS: Levothyroxine Sodium 100 MCG TAB PO SCH (05:58)
[2021-02-11] MEDS: Hydrochlorothiazide 25 MG TAB PO SCH (08:46)
[2021-02-11] MEDS: Metoprolol Tartrate 100 MG TAB PO SCH ×2 (08:46→20:53)
[2021-02-11] MEDS: Enoxaparin Sodium 30 MG/0.3 ML SYRINGE SC SCH (08:46)
[2021-02-11] MEDS: Clopidogrel Bisulfate 75 MG TAB PO SCH (08:46)
[2021-02-11] MEDS: Atorvastatin Calcium 40 MG TAB PO SCH (20:52)
[2021-02-11] MEDS: Losartan 25 MG TAB PO SCH (20:52)
[2021-02-11] MEDS: Melatonin 3 MG TAB PO PRN (20:56)
[2021-02-12] MEDS: Levothyroxine Sodium 100 MCG TAB PO SCH (05:02)
[2021-02-12] MEDS: Clopidogrel Bisulfate 75 MG TAB PO SCH (08:46)
[2021-02-12] MEDS: Hydrochlorothiazide 25 MG TAB PO SCH (08:47)
[2021-02-12] MEDS: Metoprolol Tartrate 100 MG TAB PO SCH ×2 (08:47→20:32)
[2021-02-12] MEDS: Enoxaparin Sodium 30 MG/0.3 ML SYRINGE SC SCH (08:47)
[2021-02-12] MEDS: Losartan 25 MG TAB PO SCH (20:32)
[2021-02-12] MEDS: Atorvastatin Calcium 40 MG TAB PO SCH (20:32)
[2021-02-13] MEDS ORDERED: Ondansetron PF 4 MG/2 ML Vial IVP PRN (00:14)
[2021-02-13] MEDS ORDERED: Ondansetron ODT 4 MG TAB PO PRN (00:22)
[2021-02-13] MEDS: Levothyroxine Sodium 100 MCG TAB PO SCH (05:31)
[2021-02-13] MEDS: Enoxaparin Sodium 30 MG/0.3 ML SYRINGE SC SCH (08:47)
[2021-02-13] MEDS: Clopidogrel Bisulfate 75 MG TAB PO SCH (08:47)
[2021-02-13] MEDS: Metoprolol Tartrate 100 MG TAB PO SCH (08:48)
[2021-02-13] MEDS: Hydrochlorothiazide 25 MG TAB PO SCH (08:48)
[2021-02-13 17:02] VITALS: BP 134/79; TEMP 98.2
== END 2021-02-13 20:23 | DRG 65 ==
LOC: ERS 11:18 → 2SE 14:01 → OBSVTOIN 02-06 10:02
PROVIDERS: ADMIT Family Medicine; ATTEND Family Medicine
DX: I63.9 Cerebral infarction, unspecified (principal); G81.91 Hemiplegia, unspecified affecting right dominant side; R11.2 Nausea with vomiting, unspecified; I10 Essential (primary) hypertension; E78.5 Hyperlipidemia, unspecified; E03.9 Hypothyroidism, unspecified; F31.9 Bipolar disorder, unspecified; F20.9 Schizophrenia, unspecified; K21.9 Gastro-esophageal reflux disease without esophagitis; M19.90 Unspecified osteoarthritis, unspecified site; J45.909 Unspecified asthma, uncomplicated; G62.9 Polyneuropathy, unspecified; R29.707 NIHSS score 7; R73.03 Prediabetes; M06.9 Rheumatoid arthritis, unspecified; H54.61 Unqualified visual loss, right eye, normal vision left eye; I95.9 Hypotension, unspecified; Z86.73 Personal history of transient ischemic attack (TIA), and cerebral infarction without residual deficits; Z88.0 Allergy status to penicillin; Z88.8 Allergy status to other drugs, medicaments and biological substances; Z79.899 Other long term (current) drug therapy; Z95.0 Presence of cardiac pacemaker; Z90.710 Acquired absence of both cervix and uterus; Z98.890 Other specified postprocedural states; Z98.42 Cataract extraction status, left eye; Z98.41 Cataract extraction status, right eye; Z87.891 Personal history of nicotine dependence; Z86.010 Personal history of colon polyps
CPT/HCPCS: 36415; 36416; 70450; 70496; 70498; 71045; 80053; 80061; 83036; 83690; 83735; 83880; 84443; 84484; 85025; 85610; 85730; 93005; 93306; 96372; G0378; J1650; Q0162; Q9967

== ENCOUNTER 2021-05-11 10:49 | Outpatient (CLI) | payer MEDICARE, MEDICAID | END 2021-05-11 10:50 | disposition home or self-care (01) | LOC: BICMAMMO 10:49 | PROVIDERS: ATTEND Student in an Organized Health Care Education/Training Program | DX: Z12.31 Encounter for screening mammogram for malignant neoplasm of breast (principal); Z80.3 Family history of malignant neoplasm of breast | CPT/HCPCS: 77063; 77067 ==

== ENCOUNTER 2022-05-20 21:30 | Emergency (ER) | payer OTHER, MEDICARE ==
[2022-05-20] MEDS ORDERED: Ketorolac Tromethamine 30 MG/ML VIAL ONE (23:37)
== END 2022-05-20 23:15 | disposition home or self-care (01) ==
LOC: ERS 21:30
DX: S09.90XA Unspecified injury of head, initial encounter (principal); I10 Essential (primary) hypertension; E03.9 Hypothyroidism, unspecified; F17.210 Nicotine dependence, cigarettes, uncomplicated; Z79.899 Other long term (current) drug therapy; W01.0XXA Fall on same level from slipping, tripping and stumbling without subsequent striking against object, initial encounter; Y93.02 Activity, running
CPT/HCPCS: 70450; 72125; 96372; J1885

== ENCOUNTER 2022-08-12 18:02 | Emergency (ER) | payer MEDICARE, OTHER ==
[2022-08-12 19:03] LABS: #Basophils 0.1 thou/uL (0.0-0.2); #Eosinphils 0.1 thou/uL (0.0-0.7); #Lymphocytes 0.5 thou/uL (1.20-3.40); #Monocytes 0.4 thou/uL (0.11-0.59); #Neutrophils 7.2 thou/uL (1.40-6.50); %Basophils 0.7 % (0.0-1.0); %Eosinophils 1.4 % (0.0-10.0); %Lymphocytes 6.2 % (21.0-51.0); %Monocytes 5.1 % (0.0-10.0); %Neutrophils 86.7 % (42.0-75.0); Hemoglobin 15.4 g/dL (12.0-16.0); Mean Corpuscular HGB CONC 31.9 g/dL (32.0-36.0); Mean Corpuscular Hemoglobin 27.3 pg (27.0-31.0); Mean Corpuscular Volume 85.6 fl (78.0-98.0); Mean Platelet Volume 8.3 fL (7.4-10.4); Platelet Count 182 10x3/uL (130-400); RBC Distribution Width 14.1 % (11.5-14.5); Red Blood Cell (RBC) Count 5.65 mill/uL (4.20-5.40); White Blood Cell (WBC) Count 8.3 10x3/uL (4.8-10.8)
[2022-08-12 19:21] LABS: Bilirubin Negative (Negative); Blood, Urine Negative (Negative); Clarity Clear (Clear); Glucose, Urine (Dipstick) Normal (Negative); Ketone, Urine Negative (Negative); Leukocyte 250 Leu/uL (Negative); Nitrite Negative (Negative); Protein, Urine (Dipstick) 10 mg/dL (Neg-Trace); Specific Gravity, Urine 1.016 (1.002-1.036); Urobilinogen Normal mg/dL (Less than 2)
[2022-08-12 19:26] LABS: Bacteria/HPF 1+ HPF (None Seen)
[2022-08-12 19:34] LABS: AST (SGOT) 48 U/L (5-34); Albumin 4.1 g/dL (3.4-4.8); Alkaline Phosphatase 93 U/L (40-110); Anion Gap 16 mmol/L (10-20); BUN (Urea Nitrogen) 13 mg/dL (9.8-20.1); Bilirubin, Total 0.7 mg/dL (0.2-1.2); Calc. Creatinine Clearance 0 mL/min (70-130); Carbon Dioxide 16 mmol/L (23-31); Chloride 112 mmol/L (98-107); Estimated GFR 81; Globulin 3.7 g/dL (2.4-3.5); Glucose 101 mg/dL (83-110); Potassium 4.4 mmol/L (3.5-5.1); Protein, Total 7.8 g/dL (5.8-8.1); Sodium 140 mmol/L (136-145)
[2022-08-12 19:34] LABS: RBC/HPF 0-3 HPF (0-3)
[2022-08-12 19:54] LABS: ALT (SGPT) 36 U/L (8-55); Lipase 20 U/L (8-78)
[2022-08-12] MEDS ORDERED: Ondansetron PF 4 MG/2 ML Vial ONE (21:07)
== END 2022-08-12 22:15 | disposition home or self-care (01) ==
LOC: ERS 18:02
DX: K57.92 Diverticulitis of intestine, part unspecified, without perforation or abscess without bleeding (principal); N39.0 Urinary tract infection, site not specified; I10 Essential (primary) hypertension; E03.9 Hypothyroidism, unspecified; Z79.899 Other long term (current) drug therapy; Z87.891 Personal history of nicotine dependence
CPT/HCPCS: 36415; 74177; 80053; 81003; 81015; 83690; 84484; 85025; 93005; 96374; J2405; Q9967

== ENCOUNTER 2023-03-20 09:53 | Outpatient (CLI) | payer OTHER, MEDICAID | END 2023-03-20 09:54 | disposition home or self-care (01) | LOC: BICMAMMO 09:53 | PROVIDERS: ATTEND Student in an Organized Health Care Education/Training Program | DX: Z12.31 Encounter for screening mammogram for malignant neoplasm of breast (principal); Z13.820 Encounter for screening for osteoporosis; M85.89 Other specified disorders of bone density and structure, multiple sites; Z80.3 Family history of malignant neoplasm of breast; Z85.038 Personal history of other malignant neoplasm of large intestine | CPT/HCPCS: 77063; 77067; 77080 ==

== ENCOUNTER → 2023-10-01 | Day surgery (SDC) | payer OTHER, MEDICAID ==
[2023-09-27 14:15] VITALS: BMI 26.2
[~2023-10-01] MED LIST changes: +Clindamycin/D5W 600 MG in Premix 1 BAG IVPB SCH; -Iopamidol-370 76% 500 ML 1 ML ONE; +LevoFLOXacin D5W 500 mg (100 mL) BAG ONE; +Midazolam HCl 2 mg/2 ml Vial ONE; +Vancomycin HCl 500 MG VIAL ONE; +fentaNYL 50 mcg/mL 1 mL Vial ONE
[2023-10-01 06:39] LABS: #Eosinphils 0.1 thou/uL (0.0-0.7); #Monocytes 0.4 thou/uL (0.11-0.59); #Neutrophils 3.1 thou/uL (1.40-6.50); %Basophils 0.4 % (0.0-1.0); %Eosinophils 2.3 % (0.0-10.0); %Lymphocytes 30.4 % (21.0-51.0); %Monocytes 7.6 % (0.0-10.0); %Neutrophils 59.1 % (42.0-75.0); Hematocrit 43.6 % (36.0-47.0); Hemoglobin 14.2 g/dL (12.0-16.0); Mean Corpuscular HGB CONC 32.6 g/dL (32.0-36.0); Mean Corpuscular Hemoglobin 26.2 pg (27.0-31.0); Mean Corpuscular Volume 80.3 fl (78.0-98.0); Mean Platelet Volume 9.8 fL (7.4-10.4); Platelet Count 193 10x3/uL (130-400); RBC Distribution Width 16.4 % (11.5-14.5); Red Blood Cell (RBC) Count 5.43 mill/uL (4.20-5.40); White Blood Cell (WBC) Count 5.3 10x3/uL (4.8-10.8)
[2023-10-01 07:02] LABS: Anion Gap 13 mmol/L (10-20); Calcium 9.8 mg/dL (7.8-10.44); Carbon Dioxide 22 mmol/L (23-31); Chloride 108 mmol/L (98-107); Glucose 97 mg/dL (83-110); Potassium 4.1 mmol/L (3.5-5.1); Sodium 139 mmol/L (136-145); Triglycerides 85 mg/dL (Less than 150)
[2023-10-01 07:13] LABS: BUN (Urea Nitrogen) 16 mg/dL (9.8-20.1); Calc. Creatinine Clearance 50 mL/min (70-130); Cardiac Risk 3.9 (Less than 4.5); Cholesterol 184 mg/dl (< 200 Desired); Estimated GFR 64; HDL Cholesterol 47 mg/dL (>60 Neg Risk); LDL Cholesterol, Calculated 120 mg/dL
== END ==
LOC: SDC 05:44
PROVIDERS: ATTEND Internal Medicine Cardiovascular Disease
PROC: 0JPT0PZ Removal of Cardiac Rhythm Related Device from Trunk Subcutaneous Tissue and Fascia, Open Approach (ICD-10-PCS; principal; 2023-10-01)
PROC: 0JH606Z Insertion of Pacemaker, Dual Chamber into Chest Subcutaneous Tissue and Fascia, Open Approach (ICD-10-PCS; 2023-10-01)
DX: Z45.010 Encounter for checking and testing of cardiac pacemaker pulse generator [battery] (principal); I47.20 Ventricular tachycardia, unspecified; R07.89 Other chest pain; R06.02 Shortness of breath; I10 Essential (primary) hypertension; I35.1 Nonrheumatic aortic (valve) insufficiency; J45.909 Unspecified asthma, uncomplicated; E03.9 Hypothyroidism, unspecified; R73.9 Hyperglycemia, unspecified; R94.5 Abnormal results of liver function studies; E78.00 Pure hypercholesterolemia, unspecified; Z88.0 Allergy status to penicillin; Z88.5 Allergy status to narcotic agent; Z90.710 Acquired absence of both cervix and uterus; Z88.8 Allergy status to other drugs, medicaments and biological substances; Z87.891 Personal history of nicotine dependence; Z79.899 Other long term (current) drug therapy
CPT/HCPCS: 33228; 80048; 80061; 85025; C1785; J3010; 36415; 99152; 99153; J1956; J2250; J3370; J3490

== ENCOUNTER 2025-04-21 11:34 | Outpatient (CLI) | payer OTHER, MEDICAID | END 2025-04-21 11:35 | disposition home or self-care (01) | LOC: BICMAMMO 11:34 | PROVIDERS: ATTEND Student in an Organized Health Care Education/Training Program | DX: M85.88 Other specified disorders of bone density and structure, other site (principal); M81.0 Age-related osteoporosis without current pathological fracture | CPT/HCPCS: 77080 ==